=== PATIENT | female | born 1995 | race Caucasian/White ===

== ENCOUNTER 2017-11-26 23:24 | Emergency (ER) | payer BC ==
[~2017-11-26] VITALS: Ht 167.6 cm; Wt 74.8 kg
[2017-11-26 23:24] VITALS: BP 132/75
[2017-11-27] MEDS ORDERED: LIDOCAINE 1%-EPI 1:100,000 20 ML VIAL ONE (00:22)
[2017-11-27] MEDS ORDERED: LIDOCAINE 1%-EPI 1:100,000 20 ML VIAL TP ONE (00:30)
--- NOTE | 2017-11-27 01:23 | NUR ---
XRAY DONE AT BEDSIDE.
== END 2017-11-27 02:48 | disposition home or self-care (01) ==
LOC: ER 23:26
DX: S70.351A Superficial foreign body, right thigh, initial encounter (principal); G43.909 Migraine, unspecified, not intractable, without status migrainosus; Z88.4 Allergy status to anesthetic agent; W45.8XXA Other foreign body or object entering through skin, initial encounter; Y93.D2 Activity, sewing; Y92.042 Bedroom in boarding-house as the place of occurrence of the external cause; Y99.8 Other external cause status
CPT/HCPCS: 73552; A4606; A6402; J3490; Z7610